=== PATIENT | male | born 1975 | race Caucasian/White ===

== ENCOUNTER 2021-12-16 15:25 | Inpatient (IN) | payer MEDICAID, OTHER ==
[2021-12-16] VITALS (8 sets, daily range): BP systolic 136–164; BP diastolic 80–102
[~2021-12-16] VITALS: Ht 177 cm; Wt 90.4 kg
[2021-12-16] MEDS ORDERED: ONDANSETRON 4 MG/2 ML (SDV) Z0FRAN ONE ×2 (15:57→17:41)
[2021-12-16] MEDS ORDERED: ONDANSETRON 4 MG/2 ML (SDV) Z0FRAN IVP ONE (16:00)
[2021-12-16] MEDS ORDERED: LACTATED RINGERS 1,000 ML IV ONE (16:00)
[2021-12-16] MEDS ORDERED: fentaNYL INJ 100 MCG/2 ML AMP IVP ONE (16:00)
[2021-12-16] MEDS ORDERED: fentaNYL INJ 100 MCG/2 ML AMP ONE ×2 (16:02→17:42)
[2021-12-16] MEDS ORDERED: morphine INJ 10 MG/ML 1ML (SYR OR VIAL) ONE ×2 (16:44→21:56)
[2021-12-16 16:49] LABS: BASOPHILS # (AUTO) 0.1 10^3/uL (0.0-0.1); BASOPHILS % (AUTO) 1 % (0-10); EOSINOPHILS # (AUTO) 0.1 10^3/uL (0.0-0.3); EOSINOPHILS % (AUTO) 1 % (0-10); HEMATOCRIT 43 % (40-54); HEMOGLOBIN 14.7 g/dL (13.3-17.7); LYMPHOCYTES % (AUTO) 16 % (12-44); MEAN CORPUSCULAR HEMOGLOBIN 31 pg (25-34); MEAN CORPUSCULAR HGB CONC 35 g/dL (32-36); MEAN CORPUSCULAR VOLUME 90 fL (80-99); MEAN PLATELET VOLUME 9.3 fL (9.0-12.2); MONOCYTES # (AUTO) 0.8 10^3/uL (0.0-1.0); MONOCYTES % (AUTO) 6 % (0-12); NEUTROPHILS # (AUTO) 10.1 10^3/uL (1.8-7.8); NEUTROPHILS % (AUTO) 76 % (42-75); PLATELET COUNT 244 10^3/uL (130-400); WHITE BLOOD COUNT 13.2 10^3/uL (4.3-11.0)
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
[2021-12-16 16:59] LABS: ALBUMIN 4.2 GM/DL (3.2-4.5); POTASSIUM 3.7 MMOL/L (3.6-5.0)
[2021-12-16 17:00] LABS: CALCIUM 9.4 MG/DL (8.5-10.1)
[2021-12-16] MEDS ORDERED: morphine INJ 4 MG/ML 1 ML (VIAL/SYRINGE) IVP ONE (17:00)
[2021-12-16 17:01] LABS: TOTAL PROTEIN 6.9 GM/DL (6.4-8.2)
[2021-12-16 17:03] LABS: BILIRUBIN,TOTAL 0.6 MG/DL (0.1-1.0)
[2021-12-16 17:05] LABS: CREATININE SERUM 0.99 MG/DL (0.60-1.30)
[2021-12-16] MEDS ORDERED: HYDROmorphone 2 MG/ML VIAL (DILAUDID) ONE (17:10)
[2021-12-16] MEDS ORDERED: HYDROmorphone 2 MG/ML VIAL (DILAUDID) IV ONE ×2 (17:15→22:00)
[2021-12-16] MEDS ORDERED: LORazepam INJ 2 MG/ML (ATIVAN) VIAL ONE (17:18)
[2021-12-16] MEDS ORDERED: LORazepam INJ 2 MG/ML (ATIVAN) VIAL IVP ONE (17:30)
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
[2021-12-16] MEDS ORDERED: ROCURONIUM 50 MG/5 ML (ZEMURON) VIAL IV ONE ×2 (17:41→20:44)
[2021-12-16] MEDS ORDERED: LIDOCAINE PF 2% 5 ML (XYLOCAINE) VIAL ONE (17:41)
[2021-12-16] MEDS ORDERED: SUCCINYLCHOLINE INJ 100 MG/5 ML SYR/VIAL ONE (17:41)
[2021-12-16] MEDS ORDERED: proPOfol 200 MG/20 ML (DIPRIVAN) VIAL IV ONE (17:41)
[2021-12-16] MEDS ORDERED: MIDAZOLAM 2 MG/2 ML (VERSED) VIAL ONE (17:42)
[2021-12-16] MEDS ORDERED: LACTATED RINGERS 1,000 ML IV SCH (17:45)
[2021-12-16] MEDS ORDERED: LIDOCAINE/EPI 2% 1:200,00 (XYLOCAINE) 20 ML VIAL ONE (18:14)
[2021-12-16] MEDS ORDERED: ceFAZolin INJECTION 2,000 MG ONE (18:28)
[2021-12-16] MEDS: LACTATED RINGERS 1,000 ML IV PRN ×2 (18:50→20:42)
[2021-12-16] MEDS ORDERED: PHENYLEPHRINE 100 MCG/ML 10 ML (ANESTHESIA) SYR ONE (18:56)
[2021-12-16] MEDS ORDERED: NEOSTIGMINE (BLOXIVERZ ) 1 MG/1ML 10 ML VIAL ONE (21:22)
[2021-12-16] MEDS ORDERED: GLYCOPYRROLATE 0.2 MG/ML (ROBINUL) 2 ML VIAL ONE (21:22)
[2021-12-16] MEDS ORDERED: SEVOFLURANE (ULTANE) 15 ML INHAL SOLN ONE (21:24)
[2021-12-16] MEDS ORDERED: LORazepam 1 MG (ATIVAN) TAB PO PRN (21:30)
[2021-12-16] MEDS ORDERED: 1/2 NS IV SOLUTION 1,000 ML IV PRN (21:30)
[2021-12-16] MEDS ORDERED: ANTACID SUSP 30 ML UDC (MYLANTA) PO PRN (21:30)
[2021-12-16] MEDS ORDERED: LORazepam INJ 2 MG/ML (ATIVAN) VIAL IM/IV PRN (21:30)
[2021-12-16] MEDS ORDERED: ONDANSETRON 4 MG (ZOFRAN) ORAL DISSOLVE TAB SL PRN (21:30)
[2021-12-16] MEDS ORDERED: D5 1/2 NS 1000 ML IV SOLUTION 1,000 ML IV PRN (21:30)
[2021-12-16] MEDS ORDERED: morphine INJ 10 MG/ML 1ML (SYR OR VIAL) IVP ONE (22:00)
[2021-12-16] MEDS ORDERED: MEPERIDINE (DEMEROL) INJ 50 MG/ML IVP ONE (22:00)
[2021-12-16] MEDS ORDERED: ONDANSETRON 4 MG/2 ML (SDV) Z0FRAN IVP PRN (22:00)
[2021-12-16] MEDS ORDERED: PROMETHAZINE INJ 25 MG/ML (PHENERGAN) AMP IVP ONE (22:00)
--- NOTE | 2021-12-16 22:35 | Progress Note-Post Operative ---
Post-Operative Progess Note Surgeon (s)/Lavatory Attendant (s) Surgeon ANGEL CASTILLO DO Lavatory Attendant: KELBY Senior Pre-Operative Diagnosis Incarcerated LEFT INGUINAL HERNIA - recurrent Post-Operative Diagnosis Same plus Ischemic bowel Procedure & Operative Findings Date of Procedure 12/16/21 Procedure Performed/Findings 1) Laparoscopic Left Inguinal Herniarraphy with mesh placement - robotic assisted 2) Open Small bowel resection. After informed consent was obtained, the patient was brought to the operating room and placed on the operating table in a supine position. He was sterilely prepped and draped in a normal fashion. Local lidocaine was used to infiltrate the skin above the umbilicus. I made an incision with #11 blade, carried down to the skin into subcutaneous tissue and then deepened down the subcutaneous tissue with Bovie electrocautery down to the fascia. Fascia was incised with Bovie electrocautery and bluntly entered the abdomen, swept a finger around, placed 0 Vicryl [id number] suture and placed limited trocar port under direct visualization. Created pneumoperitoneum and placed the Jin-Magici camera into the abdomen, able to visualize the hernia (all the intestine had fallen out) and looked at the small bowel which appeared to have bruising, hematoma in mesentery and early ischemia. I took a picture of all of this and then placed two 8 mm ports about 10 cm on either side of the midline port using a local lidocaine, 11 blade for stab incision and then advanced the robotic port under direct visualization. Once this was in, I then placed the patient in Trendelenburg (appx 15 degrees) and then placed the working instruments, the fenestrated bipolar and the scissors. Looked on the left side and saw a very large indirecte inguinal hernia; it appeared as if the hernia sac had not even been removed from the inguinal canal. I also saw what looked like bunched up mesh under the peritoneum; but well above the hernia defect. I looked on the right side and did not see any defect. Next, I came across the peritoneum approximately 8 cm superior to the hernia defect, going across from medial to lateral about 17cm. I encountered mesh for about 8 cm and in some spots I had to go more anterior toward the muscle and in some I was able to stay more superficial and close to the peritoneum. I then carefully dissected the visceral peritoneum away and down and then in the midline, went through the parietal side and dissected down to the pubic tubercle, dissecting this down carefully pushing the peritoneum away, I was able to then visualize the pubic tubercle and Brandin's ligament. I went 2 cm posterior and at this point, we then had a critical view of the dissection, able to dissect 2 cm across the midline to the right side, 2 cm posterior to the Brandin's ligament, able to then parietalize the vas deferens and spermatic vessels right at the groove between Brandin's and iliac vein and able to dissect, make sure there was no peritoneum between those two, able to see the indirect hernia space, took a picture of this, looked at the femoral space (no hernia seen). Then I tried carefully teasing out the hernia sac; it was very large and stuck because of previous manipulation. It ripped a couple of times and I finally had to cut some off and leave in canal. I could visualize the indirect hernia space and took another picture of this. Next I looked on the cord and cord structures. There was no cord lipoma to be found. I could clearly see the inguinal canal and the indirect space. Next I carried the posterior lateral dissection all the way out and then placed a 12 x 17 Midweight Bard 3DMax mesh. It laid in nicely, covered the hernia defect and the rest of the area. It was above the peritoneum, sutured it at the pubic tubercle with a 3-0 Vicryl suture and tied this off. Then placed another suture out laterally and this appeared to lay in very nicely. I then brought down the pneumoperitoneum to about 8 mmHg and then started closing the peritoneum. Started medially and used a 2-0 V-lock barbed suture to start a running stitch to close the peritoneum. This was closed nicely, took a picture of the closure at this point and then removed both needles. I used another 3-0 Vicryl stitch to close the hole in the peritoneum from the hernia sac. During the suturing I had switched to a suture school bus driver/mechanic from the scissors. At this point I then looked again at the bowel and unfortunately had not pinked up; looked like it may not be viable. I felt the safest thing to do was to resect the bowel. The patient was then placed back supine, removed all ports under direct visualization, allowed pneumoperitoneum to escape. I then increased the supraumbilical incision superiorly and inferiorly about 8cm. I was able to grasp the small bowel and bring out the ischemic portion; it was about 14 inches long. Placed blue towels down on the abdomen and then made a defect in the anti-mesenteric portion of the small bowel. One cephaled and one cauded to the bad bowel. Used bovie cautery to make the opening and placed the WILLIAM 55mm stapler on either side. Clamped and held for 30 seconds and then fired and cut; thereby creating a side-to side, functional end to end anastomosis. Fired another load of the WILLIAM stapler to close the entereo-enterotomy. Used a ligasure (clamping, coagulating and cutting) to remove the small bowel from the mesentry and pass it off the table. We then changed gloves and I closed the mesenteric defect with a running 3-0 Vicryl. Finally dropped the small bowel back into the abdomen and closed the fascia with a #1 Looped PDS suture running from inferiorly to superiorly and tying to itself. Copiously irrigated all incisions and then closed the incisions with ramiro. The area was cleaned and dried, dressings were placed. The patient tolerated the procedure. The sponge, instrument and needle counts were correct at the end of the case. Anesthesia Type GET Estimated Blood Loss Estimated blood loss (mL): less than 20ml Specimens/Packing Specimens Removed small bowel ANGEL CASTILLO DO Dec 16, 2021 22:35
[2021-12-16] MEDS: ceFAZolin 2 GM IV Premixed 50 ML IV SCH (23:07)
[2021-12-16] MEDS: LACTATED RINGERS 1,000 ML IV SCH (23:10)
[2021-12-16] MEDS: metroNIDAZOLE 500MG/100ML IVPB 100 ML IV SCH (23:48)
[2021-12-17 00:28] LABS: PROTHROMBIN TIME PATIENT 13.3 SEC (12.2-14.7)
[2021-12-17] MEDS: LACTATED RINGERS 1,000 ML IV SCH ×3 (02:42→20:01)
[2021-12-17 03:36] VITALS: BP 135/75
[2021-12-17] MEDS: ceFAZolin 2 GM IV Premixed 50 ML IV SCH (05:17)
[2021-12-17] MEDS: metroNIDAZOLE 500MG/100ML IVPB 100 ML IV SCH (06:08)
[2021-12-17 07:32] VITALS: BP 139/81
[2021-12-17] MEDS: HYDROmorphone 2 MG/ML VIAL (DILAUDID) IV PRN (08:08)
[2021-12-17] MEDS: ONDANSETRON 4 MG/2 ML (SDV) Z0FRAN IV PRN ×2 (08:08→22:04)
[2021-12-17] MEDS: PANTOPRAZOLE 40 MG (PROTONIX) VIAL IVP SCH (08:08)
--- NOTE | 2021-12-17 09:17 | Anesthesia-General Post-Op ---
General Patient Condition Mental Status/LOC: Same as Preop Cardiovascular: Satisfactory Nausea/Vomiting: Absent Respiratory: Satisfactory Pain: Controlled Complications: Absent Post Op Complications Complications None Follow Up Care/Instructions Patient Instructions None needed. Anesthesia/Patient Condition Patient Condition Patient is doing well, no complaints, stable vital signs, no apparent adverse anesthesia problems. No complications reported per nursing. SHASHA MENDEZ CRNA Dec 17, 2021 09:17
--- NOTE | 2021-12-17 11:08 | Progress Note - Surgery ---
ZULEMA RUSS 12/17/21 1108: Subjective Date Seen by a Provider: Dec 17, 2021 Time Seen by a Provider: 10:01 Subjective/Events-last exam Mr. Troy is 1 day s/p robotic inguinal hernia repair with partial small bowel resection. This morning he reports he feels much better than he did last night. He reports abdominal pain of around a 4/10 and says he is mostly sore more than anything. He complains of some shoulder and neck pain from the insufflation. He denies any bowel movements or flatus. He is on a diet of clears. His midline incision has a small-moderate amount of sanguineous discharge. He has no concerns this morning. Review of Systems General: No Chills, No Fatigue HEENT: No Head Aches, No Visual Changes Pulmonary: No Dyspnea, No Cough Cardiovascular: No: Chest Pain, Palpitations Gastrointestinal: Abdominal Pain; No: Nausea, Vomiting Musculoskeletal: neck pain, shoulder pain Objective Exam Vital Signs Date Time Temp Pulse Resp B/P (MAP) Pulse Ox O2 Delivery O2 Flow Rate FiO2 12/17/21 08:27 Room Air 12/17/21 07:32 36.8 76 18 139/81 (100) 97 Room Air 12/17/21 07:00 72 12/17/21 03:36 36.8 79 20 135/75 (95) 95 Room Air 12/17/21 01:00 73 12/16/21 23:59 36.5 92 20 143/80 (101) 96 Room Air 12/16/21 22:58 Room Air 12/16/21 22:52 73 12/16/21 22:45 36.7 76 21 157/85 (109) 98 Room Air 12/16/21 22:40 Room Air 12/16/21 22:30 36.1 18 150/98 (115) 98 Room Air 12/16/21 22:20 18 136/84 (101) 100 OxyMask 10.00 12/16/21 22:10 20 139/98 (112) 100 OxyMask 10.00 12/16/21 22:10 OxyMask 10.00 12/16/21 22:00 20 164/102 (122) 100 OxyMask 10.00 12/16/21 21:50 21 154/92 (112) 100 OxyMask 10.00 12/16/21 21:41 36.2 20 139/89 (106) 100 OxyMask 10.00 12/16/21 21:41 OxyMask 10.00 12/16/21 18:15 62 14 154/82 100 Nasal Cannula 2.00 12/16/21 15:50 35.1 56 14 159/129 (139) 100 I & O 12/17/21 07:00 Intake Total 3600 ml Output Total 1400 ml Balance 2200 ml Capillary Refill : Less Than 3 Seconds General Appearance: No Apparent Distress, WD/WN HEENT: PERRL/EOMI, Moist Mucous Membranes Neck: Non Tender, Supple Respiratory: Chest Non Tender, Lungs Clear, Normal Breath Sounds, No Accessory Muscle Use, No Respiratory Distress Cardiovascular: Regular Rate, Rhythm, No Edema, Normal Peripheral Pulses Peripheral Pulses: 2+ Radial Pulses (R), 2+ Radial Pulses (L) Gastrointestinal: soft; No distended, No guarding; tenderness (Moderate tenderness over incisions and with bandage removal), other (Sanguineous discharge from midline incision. Incision sites closed with ramiro and are without erythema or major tenderness) Extremity: Non Tender, No Pedal Edema Neurologic/Psychiatric: Alert, Oriented x3, Normal Mood/Affect Skin: Normal Color, Warm/Dry Results Lab Laboratory Tests 12/16/21 16:35: White Blood Count 13.2H, Red Blood Count 4.73, Hemoglobin 14.7, Hematocrit 43, Mean Corpuscular Volume 90, Mean Corpuscular Hemoglobin 31, Mean Corpuscular Hemoglobin Concent 35, Red Cell Distribution Width 13.8, Platelet Count 244, Mean Platelet Volume 9.3, Immature Granulocyte % (Auto) 1, Neutrophils (%) (Auto) 76H, Lymphocytes (%) (Auto) 16, Monocytes (%) (Auto) 6, Eosinophils (%) (Auto) 1, Basophils (%) (Auto) 1, Neutrophils # (Auto) 10.1H, Lymphocytes # (Auto) 2.0, Monocytes # (Auto) 0.8, Eosinophils # (Auto) 0.1, Basophils # (Auto) 0.1, Immature Granulocyte # (Auto) 0.1, Sodium Level 139, Potassium Level 3.7, Chloride Level 105, Carbon Dioxide Level 20L, Anion Gap 14, Blood Urea Nitrogen 14, Creatinine 0.99, Estimat Glomerular Filtration Rate 96, BUN/Creatinine Ratio 14, Glucose Level 161H, Calcium Level 9.4, Corrected Calcium 9.2, Total Bilirubin 0.6, Aspartate Amino Transf (AST/SGOT) 22, Alanine Aminotransferase (ALT/SGPT) 26, Alkaline Phosphatase 89, Total Creatine Kinase 130, Total Protein 6.9, Albumin 4.2, Serum Alcohol < 10 12/17/21 00:08: Serum Alcohol < 10, Prothrombin Time 13.3, INR Comment 1.0, Activated Partial Thromboplast Time 30 12/17/21 05:27: Glucometer 100 Assessment/Plan Assessment/Plan Assessment/Plan Incarcerated, possible strangulated Left Inguinal Hernia - recurrent Repaired with robotic inguinal hernia repair and small bowel resection Diaphoresis Resolved Hypothermia Resolved Continue fluids and pain control as needed Continue monitoring for signs of alcohol withdrawal Repeat labs in AM Encourage ambulation and advance diet as tolerated, currently on liquids CHRIS MORA DO 12/17/21 1317: Subjective Time Seen by a Provider: 12:15 Subjective/Events-last exam Pt seen and examined, states he feels much better than yesterday. Pain is mostly controlled and he is tolerating clears. Review of Systems Pulmonary: No Dyspnea, No Cough Cardiovascular: No: Chest Pain, Palpitations Gastrointestinal: Abdominal Pain; No: Nausea, Vomiting Objective Exam General Appearance: No Apparent Distress, WD/WN Respiratory: Lungs Clear, Normal Breath Sounds, No Accessory Muscle Use, No Respiratory Distress Cardiovascular: Regular Rate, Rhythm, No Murmur Gastrointestinal: soft; No distended, No guarding; tenderness (Moderate tenderness over incisions and with bandage removal), other (Minimal sanguinous drainage from midline incision. 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 I then reviewed and verified all information documented by the medical student and made modifications to such information, when appropriate. I personally performed a physical exam, medical decision making and then discussed any differences between the notes and made revisions as necessary to create one note. Chris Mora , 12/17/21 , 13:17 ZULEMA RUSS Dec 17, 2021 11:08 CHRIS MORA DO Dec 17, 2021 13:17
[2021-12-17 11:23] VITALS: BP 146/83
[2021-12-17 15:07] VITALS: BP 152/91
[2021-12-17 19:06] VITALS: BP 148/89
[2021-12-17 23:50] VITALS: BP 157/92
[2021-12-18] MEDS: HYDROmorphone 2 MG/ML VIAL (DILAUDID) IV PRN (01:00)
[2021-12-18 03:30] VITALS: BP 156/90
[2021-12-18] MEDS: LACTATED RINGERS 1,000 ML IV SCH ×2 (03:30→11:58)
--- NOTE | 2021-12-18 06:58 | Progress Note - Surgery ---
ZULEMA RUSS 12/18/21 0658: Subjective Date Seen by a Provider: Dec 18, 2021 Time Seen by a Provider: 06:12 Subjective/Events-last exam Mr. Troy is 2 days s/p robotic inguinal hernia repair with partial small bowel resection. This morning he reports crampy abdominal pain and soreness; he rates his pain as a 5/10 this morning. He is on sips of liquids and says that is going well. He says he thinks he passed gas once yesterday. He has not had a bowel movement. He said he was walking around the halls yesterday. He requested a nicotine patch this morning. Review of Systems General: No Chills, No Fatigue HEENT: No Head Aches, No Visual Changes Pulmonary: No Dyspnea, No Cough Cardiovascular: No: Chest Pain, Palpitations Gastrointestinal: Abdominal Pain; No: Nausea, Vomiting Neurological: No: Weakness, Confusion Objective Exam Vital Signs Date Time Temp Pulse Resp B/P (MAP) Pulse Ox O2 Delivery O2 Flow Rate FiO2 12/18/21 03:30 36.0 82 22 156/90 (112) 97 Room Air 12/18/21 01:00 79 12/17/21 23:50 36.3 81 20 157/92 (113) 97 Room Air 12/17/21 20:00 Room Air 12/17/21 19:06 36.3 72 22 148/89 (108) 98 Room Air 12/17/21 19:00 77 12/17/21 15:07 36.6 76 18 152/91 (111) 96 Room Air 12/17/21 12:40 76 12/17/21 11:23 36.6 78 18 146/83 (104) 97 Room Air 12/17/21 08:27 Room Air 12/17/21 07:32 36.8 76 18 139/81 (100) 97 Room Air 12/17/21 07:00 72 I & O 12/18/21 07:00 Intake Total 4247 ml Output Total 1275 ml Balance 2972 ml Capillary Refill : Less Than 3 Seconds General Appearance: No Apparent Distress, WD/WN HEENT: PERRL/EOMI, Moist Mucous Membranes Neck: Non Tender, Supple Respiratory: Chest Non Tender, Lungs Clear, Normal Breath Sounds, No Accessory Muscle Use, No Respiratory Distress Cardiovascular: Regular Rate, Rhythm, No Murmur, Normal Peripheral Pulses Peripheral Pulses: 2+ Radial Pulses (R), 2+ Radial Pulses (L) Gastrointestinal: soft; No distended, No guarding; tenderness (Moderate tenderness over incisions and with bandage removal), other (Minimal sanguinous drainage from midline incision. Incision sites closed with ramiro and are without erythema or major tenderness. Dressing has not been changed since surgery.) Extremity: Non Tender, No Pedal Edema Neurologic/Psychiatric: Alert, Oriented x3, Normal Mood/Affect Skin: Normal Color, Warm/Dry Results Lab Laboratory Tests 12/17/21 11:58: Glucometer 121H Assessment/Plan Assessment/Plan Assessment/Plan Incarcerated, possible strangulated Left Inguinal Hernia - recurrent Repaired with robotic inguinal hernia repair and small bowel resection S/p resection ischemic bowel Diaphoresis Resolved Hypothermia Resolved Continue fluids and pain control as needed Continue monitoring for signs of alcohol withdrawal Have not had labs in 2 days, consider labs Encourage ambulation and advance diet as tolerated, currently on liquids CHRIS MORA DO 12/18/21 1424: Subjective Time Seen by a Provider: 11:59 Subjective/Events-last exam Pt seen and examined, states pain is mostly controlled. He states he'd like to go home. Review of Systems HEENT: No Head Aches, No Visual Changes Pulmonary: No Dyspnea, No Cough Cardiovascular: No: Chest Pain, Palpitations Gastrointestinal: Abdominal Pain; No: Nausea, Vomiting Objective Exam General Appearance: No Apparent Distress, WD/WN Respiratory: Lungs Clear, Normal Breath Sounds, No Accessory Muscle Use, No Respiratory Distress Cardiovascular: Regular Rate, Rhythm, No Murmur Gastrointestinal: soft; No distended, No guarding; tenderness (Moderate tenderness over incisions and with bandage removal), other ( [place] at incisions are without erythema or major tenderness. ) Assessment/Plan Assessment/Plan Assessment/Plan Bacteremia - 3 out of 3 bottles positive for Coag negative staph Will treat with oral Bactrim until we get sensitivity and send pt home. Strangulated Left Inguinal Hernia - recurrent Repaired with robotic inguinal hernia repair S/p resection ischemic bowel Will D/C IV and D/C home, encourage ambulation and advance diet as tolerated at home Supervisory-Addendum Brief Verification & Attestation Participated in pt care: history, MDM, physical Personally performed: exam, history, MDM, supervision of care Care discussed with: Medical Student Procedures: n/a Verification and Attestation of Medical Student E/M Service A medical student performed and documented this service. I then reviewed and verified all information documented by the medical student and made modifications to such information, when appropriate. I personally performed a physical exam, medical decision making and then discussed any differences between the notes and made revisions as necessary to create one note. Chris Mora , 12/18/21 , 14:25 ZULEMA RUSS Dec 18, 2021 06:58 CHRIS MORA DO Dec 18, 2021 14:24
[2021-12-18 07:28] VITALS: BP 160/84
[2021-12-18] MEDS: PANTOPRAZOLE 40 MG (PROTONIX) VIAL IVP SCH (08:42)
[2021-12-18] MEDS ORDERED: NICOTINE 14 MG (NICODERM) PATCH TD SCH (09:00)
[2021-12-18 11:34] VITALS: BP 150/92
[2021-12-18] MEDS ORDERED: SULF1TAB38 PO (14:26)
[2021-12-18] MEDS ORDERED: ACHYD1T PO (14:26)
--- NOTE | 2021-12-18 14:29 | Discharge Inst-Surgical ---
Discharge Inst-Surgical Depart Medication/Instructions New, Converted or Re-Newed RX: Transmitted to Pharmacy Patient Instructions Follow up Appt: Make appointment for 1 week. [phone] Instructions: No lifting greater than 20 pounds. No strenuous activity. May shower in 24 hours, no tub bath or soaking. Use incentive spirometer at home as directed. No Smoking Skin/Wound Care: May remove bandages in am. You need to leave the Dermabond on incision it will fall off on it's own. Symptoms to Report: Appetite Changes, Extremity Discoloration, Numbness/Tingling, Swelling Increased, Bleeding Excessive, Eyesight Changes, Pain Increased, Urine Color Change, Constipation(Persistent), Fever over 101 degree F, Pain/Pressure in chest, Urinating Difficulty, Cough Up/Vomit Blood, Heart Beat Irreg/Pounding, Pain/Pressure in jaw, Cramps in feet or legs, Lightheadedness, Pain/Pressure in shoulder, Diarrhea(Persistent), Memory Changes Suddenly, Questions/Concerns, Weight gain consecutive days, Dizziness/Fainting, Nausea/Vomiting, Shortness of Breath, Weight gain over 2 pounds If questions or concerns contact your physician Or seek help at emergency department. Activity Activity as Tolerated: Yes Activity Instructions: Avoid Stress to Incision Diet Discharge Diet: No Restrictions Diet After 24 Hours: Clear Liquid if Nauseous If Any Problems/Questions/Issu: Contact Your Physician, Go to Emergency Room Skin/Wound Care Infection Signs and Symptoms: Increased Redness, Foul Odor of Wound, Increased Drainage, Skin Itchy or Has a Rash, Increased Swelling, Temperature Above 101 F Bathing Instructions: Shower Stitches/John/Dermabond Dis: Care of ANGEL Blake DO Dec 18, 2021 14:29
[2021-12-18 15:20] VITALS: BP 150/92
[2021-12-19] MEDS ORDERED: NICOTINE PATCH REMOVAL TP SCH (08:59)
== END 2021-12-18 15:20 | disposition home or self-care (01) | DRG 330 ==
LOC: EDUNIT# 15:25 → ER 15:27 → SDC 17:52 → 4TH 21:25
PROVIDERS: ADMIT Surgery; ATTEND Surgery
PROC: 0DB80ZZ Excision of Small Intestine, Open Approach (ICD-10-PCS; 2021-12-16)
PROC: 8E0W3CZ Robotic Assisted Procedure of Trunk Region, Percutaneous Approach (ICD-10-PCS; 2021-12-16)
PROC: 0YU64JZ Supplement Left Inguinal Region with Synthetic Substitute, Percutaneous Endoscopic Approach (ICD-10-PCS; principal; 2021-12-16 18:23)
DX: K40.31 Unilateral inguinal hernia, with obstruction, without gangrene, recurrent (principal); F10.239 Alcohol dependence with withdrawal, unspecified; K55.9 Vascular disorder of intestine, unspecified; I16.0 Hypertensive urgency; R68.0 Hypothermia, not associated with low environmental temperature; F12.10 Cannabis abuse, uncomplicated; Y90.0 Blood alcohol level of less than 20 mg/100 ml; B19.20 Unspecified viral hepatitis C without hepatic coma; K21.9 Gastro-esophageal reflux disease without esophagitis; F32.A Depression, unspecified; F17.210 Nicotine dependence, cigarettes, uncomplicated; R61 Generalized hyperhidrosis
CPT/HCPCS: 36415; 80053; 80320; 82550; 82947; 85025; 85610; 85730; 87040; 94664